=== PATIENT | female | born 1955 | race American Indian/Alaskan Native ===

== ENCOUNTER 2017-02-17 10:31 | Inpatient (IN) | payer MEDICARE, OTHER ==
[2017-02-17 10:31] VITALS: BMI 33.9
[2017-02-17] MEDS ORDERED: Sodium Chloride 0.9% 1,000 ML IV ONE (11:24)
[2017-02-17 11:55] LABS: BASO # 0.1 K/uL (0.0-0.2); BASO % 0.8 % (0.0-2.0); EOS # 0.1 K/uL (0.0-0.7); EOS % 0.8 % (0.0-4.0); HEMATOCRIT 38.4 % (34.0-47.0); LYMPH # 1.8 K/uL (1.0-4.3); LYMPH % 15.7 % (20.0-40.0); MEAN CELL VOLUME 83.5 fL (81.0-99.0); MEAN CORPUSCULAR HEMOGLOBIN 26.4 pg (27.0-31.0); MEAN CORPUSCULAR HGB CONC 31.6 g/dL (33.0-37.0); MEAN PLATELET VOLUME 11.4 fL (7.2-11.7); MONO # 0.8 K/uL (0.0-0.8); MONO % 6.7 % (0.0-10.0); WHITE BLOOD COUNT 11.4 K/uL (4.8-10.8)
[2017-02-17 11:58] LABS: INR 1.1
[2017-02-17 12:00] LABS: CHLORIDE 97 mmol/L (98-107); POTASSIUM 3.1 mmol/L (3.6-5.2); SODIUM 139 mmol/L (132-148)
[2017-02-17 12:02] LABS: RBC URINE 4 /hpf (0-3); URINE BACTERIA FEW (<OCC); URINE BILIRUBIN NEGATIVE (NEGATIVE); URINE BLOOD NEGATIVE (NEGATIVE); URINE COLOR Yellow (YELLOW); URINE GLUCOSE (UA) NORMAL (Normal); URINE KETONE NEGATIVE (NEGATIVE); URINE LEUKOCYTE ESTERASE NEG Leu/uL (Negative); URINE PROTEIN NEGATIVE (NEGATIVE); URINE UROBILINOGEN NORMAL mg/dL (0.2-1.0)
[2017-02-17 12:02] LABS: ALKALINE PHOSPHATASE 88 U/L (38-126); AST/SGOT 29 U/L (14-36); BILIRUBIN,TOTAL 0.8 mg/dL (0.2-1.3); BLOOD UREA NITROGEN 27 mg/dL (7-17); CARBON DIOXIDE 31 mmol/L (22-30); CHOLESTEROL 156 mg/dL (0-199); GFR AFRICAN-AMERICAN > 60; GLUCOSE,RANDOM 120 mg/dL (65-105)
[2017-02-17 12:03] LABS: ALT/SGPT 14 U/L (9-52); CALCIUM 9.2 mg/dl (8.6-10.4)
[2017-02-17 12:06] LABS: WBC URINE 5 /hpf (0-5)
[2017-02-17] MEDS ORDERED: Sodium Chloride 0.9% 1,000 ML ONE (12:19)
--- NOTE | 2017-02-17 12:23 | CT ---
PROCEDURE: CT HEAD WITHOUT CONTRAST. HISTORY: syncope COMPARISON: None available. TECHNIQUE: Axial computed tomography images were obtained through the head/brain without intravenous contrast. Radiation dose: Total exam DLP = 981.84 mGy-cm. This CT exam was performed using one or more of the following dose reduction techniques: Automated exposure control, adjustment of the mA and/or kV according to patient size, and/or use of iterative reconstruction technique. FINDINGS: HEMORRHAGE: No intracranial hemorrhage. BRAIN: No mass effect or edema. Mild scattered white matter hypodensities, which are nonspecific, but often seen with chronic microvascular ischemic disease. Please note that MRI with diffusion imaging is more sensitive in the detection of acute ischemic event. VENTRICLES: No hydrocephalus. CALVARIUM: Unremarkable. PARANASAL SINUSES: Unremarkable as visualized. No significant inflammatory changes. MASTOID AIR CELLS: Unremarkable as visualized. No inflammatory changes. OTHER FINDINGS: Soft tissue scalp irregularity along the vertex compatible with laceration; correlate clinically. IMPRESSION: No acute intracranial pathology identified. Soft tissue scalp irregularity along the vertex compatible with laceration; correlate clinically.
[2017-02-17 12:36] LABS: THYROID STIMULATING HORMONE 0.67 mIU/L (0.46-4.68)
--- NOTE | 2017-02-17 13:00 | C.PDOC ---
History Of Present Illness 61 y/o female presents to the ED s/p syncopal episode. Pt was waiting at her PMDs office for prescription refill, when she got up from sitting she felt dizzy and had syncopal episode. Pt was evaluated by Dr Powell who referred patient to ED for further evaluation. Pt now complains of mild headache. Denies severe headache, nausea, vomiting, dizziness, vision changes, focal deficits, chest pain, palpitations, SOB, incontinence, or any other complaints. Pt admits to taking all medications prior to being seen at PMDs office. Time Seen by Provider: 02/17/17 11:23 Chief Complaint (Nursing): Syncope History Per: Patient History/Exam Limitations: no limitations Onset/Duration Of Symptoms: Mins Current Symptoms Are (Timing): Better Number Of Syncopal Episodes: 1 Activity At Onset Of Symptoms: Had Just Stood up Associated Symptoms Preceding Syncopal Episode: Other (dizziness) Fall Associated With With Symptoms: Yes Severity: Mild Recent travel outside of the [place]: No Past Medical History Reviewed: Historical Data, Nursing Documentation, Vital Signs Vital Signs: Last Vital Signs Temp 97.6 F 02/17/17 17:22 Pulse 53 L 02/17/17 17:22 Resp 18 02/17/17 17:22 BP 126/69 02/17/17 17:22 Pulse Ox 98 02/17/17 17:22 - Medical History PMH: HTN, Hypercholesterolemia, Hyperlipidemia - [facility] Procedures CONTRAST RENAL ARTERIOGR (12/08/13) CORONAR ARTERIOGR-2 CATH (12/08/13) INSERTION OF ONE VASCULAR STENT (12/08/13) INSRT OF DRUG-ELUTING CORON ARTERY STENTS(S) (12/08/13) LEFT HEART CARDIAC CATH (12/08/13) LT HEART ANGIOCARDIOGRAM (12/08/13) PERCUTANEOUS TRANSLUMINAL CORONARY ANGIOPLASTY [PTCA] (12/08/13) PROCEDURE ON SINGLE VESSEL (12/08/13) Family History: States: Unknown Family Hx - Social History Hx Alcohol Use: No Hx Substance Use: No - Immunization History Hx Tetanus Toxoid Vaccination: No Hx Influenza Vaccination: Yes Hx Pneumococcal Vaccination: No Review Of Systems Except As Marked, All Systems Reviewed And Found Negative. Constitutional: Negative for: Fever Eyes: Negative for: Vision Change Cardiovascular: Negative for: Chest Pain, Palpitations Respiratory: Negative for: Shortness of Breath Gastrointestinal: Negative for: Nausea, Vomiting Genitourinary: Negative for: Incontinence Neurological: Positive for: Headache, Other (syncopal episode). Negative for: Weakness, Numbness, Change in Speech Physical Exam - Physical Exam Appears: Non-toxic, No Acute Distress Skin: Warm, Dry, No Rash Head: Normacephalic, No Swelling, Other (puncture wound to left parietal area) Eye(s): bilateral: PERRL, EOMI Nose: Normal Neck: Normal, Normal ROM, Supple Chest: Symmetrical Cardiovascular: Rhythm Regular, No Murmur Respiratory: Normal Breath Sounds, No Rales, No Rhonchi, No Wheezing Gastrointestinal/Abdominal: Normal Exam, Soft, No Tenderness Back: Normal Inspection, No Vertebral Tenderness Extremity: Normal ROM Extremity: Bilateral: Atraumatic Neurological/Psych: Oriented x3, Normal Speech, Normal Cognition, Normal Cranial Nerves, Normal Motor, Normal Sensation Gait: Steady ED Course And Treatment - Laboratory Results Result Diagrams: 02/17/17 11:43 02/17/17 11:43 ECG: Interpreted By Me, Viewed By Me (and ED attending) ECG Rhythm: Sinus Bradycardia (Sinus naveen@48/min, NAD, T wave inversion III, V2 -3) O2 Sat by Pulse Oximetry: 98 (room air) Pulse Ox Interpretation: Normal - CT Scan/US CT head w/o contrast Other Rad Studies (CT/US): Radiology Report Reviewed CT/US Interpretation: PROCEDURE: CT HEAD WITHOUT CONTRAST. HISTORY: syncope. COMPARISON: None available. TECHNIQUE: Axial computed tomography images were obtained through the head/brain without intravenous contrast. Radiation dose: Total exam DLP = 981.84 mGy-cm. This CT exam was performed using one or more of the following dose reduction techniques: Automated exposure control, adjustment of the mA and/or kV according to patient size, and/or use of iterative reconstruction technique. FINDINGS: HEMORRHAGE: No intracranial hemorrhage. BRAIN: No mass effect or edema. Mild scattered white matter hypodensities, which are nonspecific, but often seen with chronic microvascular ischemic disease. Please note that MRI with diffusion imaging is more sensitive in the detection of acute ischemic event. VENTRICLES: No hydrocephalus. CALVARIUM: Unremarkable. PARANASAL SINUSES: Unremarkable as visualized. No significant inflammatory changes. MASTOID AIR CELLS: Unremarkable as visualized. No inflammatory changes. OTHER FINDINGS: Soft tissue scalp irregularity along the vertex compatible with laceration; correlate clinically. IMPRESSION: No acute intracranial pathology identified. Soft tissue scalp irregularity along the vertex compatible with laceration; correlate clinically. Progress Note: On re-eavluation, pt remained stable, Afebrile, hemodynamicaly stable. Still c/o mild headache. neck: (-) meningeals ign. Lungs: CTA B/L, BS equal B/L. CVS: (+)naveen, (-) murmurs. Abd: benign. Neurologicaly intact. Diagnostics reviews, CT head- no acute abnormalities. GIven pt's cardiac hx and current syncopal episode, admission recommend . Case discussed with Hospitalist and admission arranged to tele. 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 - Scribe Statement The provider has reviewed the documentation as recorded by the Scribdiana Guaman All medical record entries made by the Scribe were at my direction and personally dictated by me. I have reviewed the chart and agree that the record accurately reflects my personal performance of the history, physical exam, medical decision making, and the department course for this patient. I have also personally directed, reviewed, and agree with the discharge instructions and disposition.
[2017-02-17] MEDS ORDERED: Potassium Chloride 20 mEq/15 ml LIQ UD PO STA (13:08)
[2017-02-17] MEDS ORDERED: Potassium Chloride 20 mEq ER Tab PO ONE (13:18)
--- NOTE | 2017-02-17 15:11 | CP.PCM.HP ---
<Aggie Sena - Last Filed: 02/17/17 16:03> History of Present Illness - History of Present Illness History of Present Illness: CC: "vision got blurry and dizzy" HPI: Patient is a 61 year old female who presents to the emergency department for episode of syncope which occurred early this morning. Patient arrived to her primary care physician's office for her 8:00 AM appointment to have her medications refilled and was in the waiting room when the episode occurred and she was sent to the emergency department by her primary care physician. She reports she stood up from the chair and her vision became blurry and she felt dizzy. Patient denies falling as she leaned up against a wall to support herself. Patient was unclear with details when questioned if she lost consciousness during the event. However, upon re-examination of the patient, she states she hit her head and fell to her side and was supported by another patient. Patient admits to taking her medications prior to her appointment which include Atorvastatin 40 mg po HS, Clonidin 0.1 mg po qd, Plavix 75 mg po qd, Enalapril 20 mg po qd, Hydrochlorothiazide 25 mg po qd, and Lopressor 50 mg po BID. She states she takes all her medicines at the same time every day. Patient denies other recent syncopal episodes. She reports the only other episode of syncope she experienced was prior to her cardiac catheterization in 2014 which revealed an "80% blockage" of her heart. Patient states the syncopal events were different. She denies shortness of breath, chest pain, palpitations , difficulty with ambulation or unstable gait, abdominal pain, fever, chills, nausea, vomiting, diarrhea, hematochezia, melanic stools, constipation, dysuria , increased urinary frequency, and lower extremity swelling. Patient denies a history of TIA/CVA. PMD: Dr. Mark Anthony Powell PMH: Hypertension, CAD with stent placement to LAD (2014), HLD Medications: as above Allergies: NKDA Family History: Father- CVA Surgical History: cardiac stent placement to LAD, incision and drainage of right leg abscess. Social: Never smoker. Denies alcohol and illicit drug use. Present on Admission - Present on Admission Any Indicators Present on Admission: No History of DVT/PE: No History of Uncontrolled Diabetes: No Urinary Catheter: No Decubitus Ulcer Present: No Review of Systems - Constitutional Constitutional: absent: Chills, Fever, Headache, Lethargy, Weakness - EENT Eyes: Blurred Vision. absent: Change in Vision Nose/Mouth/Throat: absent: Nasal Congestion, Nasal Discharge - Cardiovascular Cardiovascular: Syncope. absent: Chest Pain, Diaphoresis, Dyspnea, Lightheadedness, Palpitations, Paroxysmal Nocturnal Dyspnea, Radiating Pain, Rapid Heart Rate - Respiratory Respiratory: absent: Cough, Dyspnea, Hemoptysis, Wheezing - Gastrointestinal Gastrointestinal: absent: Abdominal Pain, Constipation, Diarrhea, Hematochezia, Melena, Nausea, Vomiting - Genitourinary Genitourinary: absent: Change in Urinary Stream, Difficulty Urinating, Dysuria - Musculoskeletal Additional comments: bilateral knee pain - Integumentary Integumentary: absent: Changing Lesions, New Lesions - Neurological Neurological: Dizziness, Syncope. absent: Confusion, Numbness, Memory Loss, Tingling, Weakness Past Patient History - Infectious Disease Hx of Infectious Diseases: None - Past Medical History & Family History Past Medical History?: Yes - Past Social History Smoking Status: Never Smoked - CARDIAC Hx Hypercholesterolemia: Yes Hx Hypertension: Yes - PULMONARY Hx Respiratory Disorders: No - NEUROLOGICAL Hx Neurological Disorder: No Hx Paralysis: No - HEENT Hx HEENT Problems: No - RENAL Hx Chronic Kidney Disease: No - ENDOCRINE/METABOLIC Hx Endocrine Disorders: No - HEMATOLOGICAL/ONCOLOGICAL Hx Blood Disorders: No Hx Blood Transfusions: No Hx Blood Transfusion Reaction: No - INTEGUMENTARY Hx Dermatological Problems: Yes Other/Comment: RT LOWER - MUSCULOSKELETAL/RHEUMATOLOGICAL Hx Musculoskeletal Disorders: No Hx Falls: No - GASTROINTESTINAL Hx Gastrointestinal Disorders: No - GENITOURINARY/GYNECOLOGICAL Hx Genitourinary Disorders: No - PSYCHIATRIC Hx Substance Use: No - SURGICAL HISTORY Hx Surgeries: Yes Hx Cardiac Catheterization: Yes (STENT IN 2013) - ANESTHESIA Hx Anesthesia: Yes Hx Anesthesia Reactions: No Hx Malignant Hyperthermia: No Meds Allergies/Adverse Reactions: Allergies Allergy/AdvReac Type Severity Reaction Status Date / Time No Known Allergies Allergy Verified 07/09/15 09:44 Physical Exam - Constitutional Appears: Non-toxic, No Acute Distress - Head Exam Head Exam: ATRAUMATIC, NORMAL INSPECTION, NORMOCEPHALIC - Eye Exam Eye Exam: EOMI, Normal appearance, PERRL. absent: Nystagmus Pupil Exam: PERRL - ENT Exam ENT Exam: Mucous Membranes Moist, Normal Exam - Neck Exam Neck exam: Positive for: Normal Inspection. Negative for: Lymphadenopathy, Tenderness - Respiratory Exam Respiratory Exam: Clear to Auscultation Bilateral, NORMAL BREATHING PATTERN. absent: Decreased Breath Sounds, Rales, Rhonchi, Wheezes - Cardiovascular Exam Cardiovascular Exam: Bradycardia, +S1, +S2. absent: Diastolic murmur, Systolic Murmur - GI/Abdominal Exam GI & Abdominal Exam: Normal Bowel Sounds, Soft. absent: Firm, Guarding, Rigid, Tenderness - Extremities Exam Extremities exam: Positive for: normal inspection, pedal pulses present. Negative for: pedal edema, tenderness - Back Exam Back exam: NORMAL INSPECTION - Neurological Exam Neurological exam: Alert, CN II-XII Intact, Oriented x3 Additional comments: finger to nose test - negative heel to roblero test - negative EOMI, pupils equal and reactive to light strength intact bilaterally 5/5 - Psychiatric Exam Additional comments: eccentric personality - Skin Skin Exam: Intact, Normal Color, Warm Results - Vital Signs Recent Vital Signs: Last Vital Signs Temp 97.3 F L 02/17/17 12:15 Pulse 45 L 02/17/17 12:15 Resp 16 02/17/17 12:15 BP 133/63 02/17/17 12:15 Pulse Ox 98 02/17/17 13:20 - Labs Result Diagrams: 02/17/17 11:43 02/17/17 11:43 Assessment & Plan - Assessment and Plan (Free Text) Assessment: Syncope r/o Cardioneurogenic cause Patient has history of Coronary artery disease with stent placed to LAD Head CT: No acute intracranial pathology identified. Soft tissue scalp irregularity along the vertex compatible with laceration. EKG: sinus bradycardia at rate of 48 bpm Troponin I <0.0120 f/u [facility] panel and serial EKGs f/u CK-MB NT-pro-B Natriuret Pep 87.1 Hold Metoprolol due to sinus bradycardia Orthostatics are negative f/u CXR f/u Echocardiogram and Carotid Dopplers f/u AM labs Energy Conservation Engineer, Dr. Poon, consulted. Help appreciated CAD s/p stent placement Plavix 75 mg po daily ASA 81 mg po daily HOLD Lopressor due to sinus bradycardia Continue Atorvastatin 40 mg po HS and Enalapril 20 mg po daily Hypertension Blood pressure 108/71 on presentation. Patient given Normal Saline IV. Repeat pressure 133/68 Continue home medication: Hydrochlorothiazide 25 mg po daily and Clonidine 0.1 mg po daily Monitor Hypokalemia Potassium 3.1 kdur 40 mEq given in ED f/u Repeat potassium Prophylaxis Heparin 5000 U SC Q12H SCDs - Date & Time Date: 02/17/17 Time: 16:26 <Anand Marrero - Last Filed: 02/17/17 18:53> Results - Vital Signs Recent Vital Signs: Last Vital Signs Temp 97.6 F 02/17/17 17:22 Pulse 53 L 02/17/17 17:22 Resp 18 02/17/17 17:22 BP 126/69 02/17/17 17:22 Pulse Ox 98 02/17/17 17:22 - Labs Result Diagrams: 02/17/17 11:43 02/17/17 11:43 Attending/Attestation - Attestation I have personally seen and examined this patient.: Yes I have fully participated in the care of the patient.: Yes I have reviewed all pertinent clinical information: Yes Notes (Text): 02/17/17 18:50 Medical attending: Patient was seen and examined by me, agrees the above note by medical photographer. The patient was seen in the emergency room with the medical photographer as well as family members at bedside. She was at her primary care physician office when she became very weak and dizzy and passed out she thinks she hits her head. A CT scan of the head was done here in the emergency room and it was negative for any acute process. When I saw her she looked very well very talkative interactive. I did not have her walk around since she was tied down by so many wires as well as a monitors, however she appeared to be very stable. Of significant note is a relatively bradycardia. It appeared to be sinus and in the 40s. I asked the patient has this happen to her before were her heart rate was the slow and she says that she is not entirely sure. She says that she did take her medication in the morning and this included metoprolol. She does not know if she's had echo of her heart before She does have a rather extensive cardiac history including taking Plavix and history of stent to her LAD. I spoke with the patient's primary care physician gave him an update as well. We 'll be checking additional cardiac enzymes, repeat EKGs, monitor on telemetry, and also get an echo and a cardiology evaluation Thank you very much, Anand Marrero
[2017-02-18 04:44] LABS: BASO % 0.5 % (0.0-2.0); EOS # 0.1 K/uL (0.0-0.7); EOS % 1.2 % (0.0-4.0); HEMATOCRIT 34.4 % (34.0-47.0); LYMPH % 21.4 % (20.0-40.0); MEAN CORPUSCULAR HEMOGLOBIN 27.1 pg (27.0-31.0); MEAN CORPUSCULAR HGB CONC 32.6 g/dL (33.0-37.0); MEAN PLATELET VOLUME 12.5 fL (7.2-11.7); MONO # 0.6 K/uL (0.0-0.8); NRBC % 0.1 % (0.0-2.0); RED CELL DISTRIBUTION WIDTH 15.2 % (11.5-14.5); WHITE BLOOD COUNT 9.2 K/uL (4.8-10.8)
[2017-02-18 05:05] LABS: CHLORIDE 102 mmol/L (98-107); SODIUM 142 mmol/L (132-148)
[2017-02-18 05:06] LABS: POTASSIUM 3.1 mmol/L (3.6-5.2)
[2017-02-18 05:07] LABS: GFR AFRICAN-AMERICAN > 60
[2017-02-18 05:08] LABS: ALKALINE PHOSPHATASE 73 U/L (38-126); ALT/SGPT 7 U/L (9-52); AST/SGOT 21 U/L (14-36); BILIRUBIN,TOTAL 0.6 mg/dL (0.2-1.3); BLOOD UREA NITROGEN 27 mg/dL (7-17); CARBON DIOXIDE 31 mmol/L (22-30); GLUCOSE,RANDOM 101 mg/dL (65-105); TOTAL PROTEIN 6.7 g/dL (6.3-8.3)
[2017-02-18 05:09] LABS: CALCIUM 8.9 mg/dl (8.6-10.4)
--- NOTE | 2017-02-18 07:51 | CP.PCM.CON ---
History of Present Illness - History of Present Illness History of Present Illness: I was asked to evaluate for syncope. Patient is a 61 year old male with a history of CAD HTN, who presents with syncope. The patient has noted progressive dyspnea on exertion whcih she describes as occurring after walking one flight of stairs. The patient states symptoms improve with rest. The patient was in her doctor's office, and was noted to have syncope. She was brought to [facility] for further management. Review of Systems - Constitutional Constitutional: absent: As Per HPI, Anorexia, Chills, Daytime Sleepiness, Excessive Sweating, Fatigue, Fever, Frequent Falls, Headache, Increased Appetite , Lethargy, Malaise, Night Sweats, Snoring, Sleep Apnea, Weight Gain, Weight Loss, Weakness, Other - EENT Eyes: absent: As Per HPI, Blind Spots, Blurred Vision, Change in Vision, Decreased Night Vision, Diplopia, Discharge, Dry Eye, Exophthalmos, Floaters, Irritation, Itchy Eyes, Loss of Peripheral Vision, Pain, Photophobia, Requires Corrective Lenses, Sees Flashes, Spots in Vision, Tunnel Vision, Other Visual Disturbances, Loss of Vision, Other Ears: absent: As Per HPI, Decreased Hearing, Ear Discharge, Ear Pain, Tinnitus, Abnormal Hearing, Disequilibrium, Dizziness, Other Nose/Mouth/Throat: absent: As Per HPI, Epistaxis, Nasal Congestion, Nasal Discharge, Nasal Obstruction, Nasal Trauma, Nose Pain, Post Nasal Drip, Sinus Pain, Sinus Pressure, Bleeding Gums, Change in Voice, Dental Pain, Dry Mouth, Dysphagia, Halitosis, Hoarsness, Lip Swelling, Mouth Lesions, Mouth Pain, Odynophagia, Sore Throat, Throat Swelling, Tongue Swelling, Facial Pain, Neck Pain, Neck Mass, Other - Cardiovascular Cardiovascular: absent: As Per HPI, Acrocyanosis, Chest Pain, Chest Pain at Rest , Chest Pain with Activity, Claudication, Diaphoresis, Dyspnea, Dyspnea on Exertion, Edema, Irregular Heart Rhythm, Pain Radiating to Arm/Neck/Jaw, Leg Edema, Leg Ulcers, Lightheadedness, Orthopnea, Palpitations, Paroxysmal Nocturnal Dyspnea, Pedal Edema, Radiating Pain, Rapid Heart Rate, Slow Heart Rate, Syncope, Other - Respiratory Respiratory: absent: As Per HPI, Cough, Dyspnea, Hemoptysis, Dyspnea on Exertion , Wheezing, Snoring, Stridor, Pain on Inspiration, Chest Congestion, Excessive Mucous Production, Change in Mucous Color, Pain with Coughing, Other - Gastrointestinal Gastrointestinal: absent: As Per HPI, Abdominal Pain, Belching, Bloating, Change in Bowel Habits, Change in Stool Character, Coffee Ground Emesis, Constipation, Cramping, Diarrhea, Dyspepsia, Dysphagia, Early Satiety, Excessive Flatus, Fecal Incontinence, Heartburn, Hematemesis, Hematochezia, Loose Stools, Melena, Nausea, Odynophagia, Temesmus, Vomiting, Other - Musculoskeletal Musculoskeletal: absent: As Per HPI, Abnormal Gait, Arthralgias, Atrophy, Back Pain, Deformity, Joint Swelling, Limited Range of Motion, Loss of Height, Muscle Cramps, Muscle Weakness, Myalgias, Neck Pain, Numbness, Radiating Pain into Limb, Stiffness, Tingling, Other - Integumentary Integumentary: absent: As Per HPI, Acne, Alopecia, Bleeding Lesions, Change in Hair, Change in Nails, Change in Pigmentation, Changing Lesions, Dry Skin, Erythema, Furuncle, Hirsutism, Lesions, New Lesions, Non-Healing Lesions, Photosensitivity, Pruritus, Rash, Skin Pain, Skin Ulcer, Sores, Striae, Swelling , Unusual Bruising, Wounds, Jaundice, Other - Neurological Neurological: absent: As Per HPI, Abnormal Gait, Abnormal Hearing, Abnormal Movements, Abnormal Speech, Behavioral Changes, Burning Sensations, Confusion, Convulsions, Disequilibrium, Dizziness, Numbness, Focal Weakness, Frequent Falls , Headaches, Lack of Coordination, Loss of Vision, Memory Loss, Paresthesias, Radicular Pain, Restless Legs, Sensory Deficit, Syncope, Tingling, Tremor, Vertigo, Weakness, Other Visual Disturbances, Other - Psychiatric Psychiatric: absent: As Per HPI, Abnormal Sleep Pattern, Anhedonia, Anxiety, Auditory Hallucinations, Behavioral Changes, Change in Appetite, Change in Libido, Confusion, Depression, Difficulty Concentrating, Hallucinations, Homicidal Ideation, Hopelessness, Irritability, Memory Loss, Mood Swings, Panic Attacks, Paranoia, Suicidal Ideation, Visual Hallucinations, Tactile Hallucinations, Other - Endocrine Endocrine: absent: As Per HPI, Change in Body Appearance, Change in Libido, Cold Intolorance, Deepening of Voice, Excessive Sweating, Fatigue, Flushing, Heat Intolorance, Increase in Ring/Shoe/Hat Size, Palpitations, Polydipsia, Polyphagia, Polyuria, Other - Hematologic/Lymphatic Hematologic: absent: As Per HPI, Easy Bleeding, Easy Bruising, Lymphadenopathy, Other Past Patient History - Infectious Disease Hx of Infectious Diseases: None - Past Medical History & Family History Past Medical History?: Yes - Past Social History Smoking Status: Never Smoked - CARDIAC Hx Hypercholesterolemia: Yes Hx Hypertension: Yes - PULMONARY Hx Respiratory Disorders: No - NEUROLOGICAL Hx Neurological Disorder: No Hx Paralysis: No - HEENT Hx HEENT Problems: No - RENAL Hx Chronic Kidney Disease: No - ENDOCRINE/METABOLIC Hx Endocrine Disorders: No - HEMATOLOGICAL/ONCOLOGICAL Hx Blood Disorders: No Hx Blood Transfusions: No Hx Blood Transfusion Reaction: No - INTEGUMENTARY Hx Dermatological Problems: Yes Other/Comment: RT LOWER - MUSCULOSKELETAL/RHEUMATOLOGICAL Hx Musculoskeletal Disorders: No Hx Falls: No - GASTROINTESTINAL Hx Gastrointestinal Disorders: No - GENITOURINARY/GYNECOLOGICAL Hx Genitourinary Disorders: No - PSYCHIATRIC Hx Substance Use: No - SURGICAL HISTORY Hx Surgeries: Yes Hx Cardiac Catheterization: Yes (STENT IN 2013) - ANESTHESIA Hx Anesthesia: Yes Hx Anesthesia Reactions: No Hx Malignant Hyperthermia: No Meds Allergies/Adverse Reactions: Allergies Allergy/AdvReac Type Severity Reaction Status Date / Time No Known Allergies Allergy Verified 07/09/15 09:44 - Medications Medications: Current Medications Aspirin (Ecotrin) 81 mg PO DAILY [facility] Clonidine HCl (Catapres) 0.1 mg PO DAILY [facility] Clopidogrel Bisulfate (Plavix) 75 mg PO DAILY [facility] Enalapril Maleate (Vasotec) 20 mg PO DAILY [facility] Heparin Sodium (Porcine) (Heparin) 5,000 units SC Q12 [facility] Last Admin: 02/17/17 21:16 Dose: 5,000 units Hydrochlorothiazide (Hydrodiuril) 25 mg PO DAILY [facility] Pneumococcal Polyvalent Vaccine (Pneumovax 23 Vaccine) 0.5 ml IM .ONCE ONE Stop: 02/18/17 10:01 Rosuvastatin Calcium (Crestor) 40 mg PO [facility] Last Admin: 02/17/17 21:15 Dose: 40 mg Physical Exam - Constitutional Appears: Non-toxic - Head Exam Head Exam: NORMAL INSPECTION - Eye Exam Eye Exam: Normal appearance - ENT Exam ENT Exam: Mucous Membranes Moist - Neck Exam Neck exam: Positive for: Full Rom - Respiratory Exam Respiratory Exam: NORMAL BREATHING PATTERN - Cardiovascular Exam Cardiovascular Exam: REGULAR RHYTHM - GI/Abdominal Exam GI & Abdominal Exam: Normal Bowel Sounds - Rectal Exam Rectal Exam: Deferred - Extremities Exam Extremities exam: Positive for: pedal edema - Back Exam Back exam: NORMAL INSPECTION - Neurological Exam Neurological exam: Alert, Oriented x3 - Psychiatric Exam Psychiatric exam: Normal Affect - Skin Skin Exam: Normal Color Results - Vital Signs Recent Vital Signs: Last Vital Signs Temp 97.5 F L 02/17/17 23:30 Pulse 71 02/17/17 23:30 Resp 20 02/17/17 23:30 BP 111/61 02/17/17 23:30 Pulse Ox 100 02/17/17 23:30 - Labs Result Diagrams: 02/19/17 07:42 02/19/17 07:42 Labs: Laboratory Results - last 24 hr 02/17/17 02/18/17 02/18/17 19:37 04:33 04:33 WBC 9.2 RBC 4.14 Hgb 11.2 Hct 34.4 MCV 83.0 MCH 27.1 MCHC 32.6 L RDW 15.2 H Plt Count 117 L D MPV 12.5 H Neut % (Auto) 69.9 Lymph % (Auto) 21.4 [place] % (Auto) 7.0 Eos % (Auto) 1.2 Baso % (Auto) 0.5 Neut # 6.4 Lymph # 2.0 [place] # 0.6 Eos # 0.1 Baso # 0.0 Sodium 142 Potassium 3.1 L Chloride 102 Carbon Dioxide 31 H Anion Gap 12 BUN 27 H Creatinine 1.0 Est GFR ( Amer) > 60 Est GFR (Non-Af Amer) 56 Random Glucose 101 Calcium 8.9 Magnesium 2.0 Total Bilirubin 0.6 AST 21 ALT 7 L D Alkaline Phosphatase 73 Total Creatine Kinase 45 44 CK-MB (Mass) 0.32 < 0.22 Troponin I, Quant < 0.0120 < 0.0120 Total Protein 6.7 Albumin 3.4 L Globulin 3.3 Albumin/Globulin Ratio 1.0 - EKG Data EKG Interpreted by: Myself EKG shows normal: Sinus rhythm Assessment & Plan (1) Dyspnea Assessment and Plan: patient has known CAD. likely recommend cardiac cath to evaluate for restenosis. Status: Acute (2) CAD (coronary artery disease) Assessment and Plan: angina. for cardiac cath Status: Acute (3) HTN (hypertension) Assessment and Plan: blood pressure control Status: Acute (4) Syncope Assessment and Plan: will monitor on telemetry Status: Acute
--- NOTE | 2017-02-18 07:51 | CP.PCM.CON ---
History of Present Illness - History of Present Illness History of Present Illness: patient seen/examined. full consult to follow. history of CAD s/p stent LAD 11065 with progressive dyspnea on exertion after walking one flight of stairs. Zack had a syncopal episode while in her primary medical doctor's office. Continue telemetry monitoring. echocardiogram to assess LV function. will need cardiac cath. NPO after midnight. Past Patient History - Infectious Disease Hx of Infectious Diseases: None - Past Medical History & Family History Past Medical History?: Yes - Past Social History Smoking Status: Never Smoked - CARDIAC Hx Hypercholesterolemia: Yes Hx Hypertension: Yes - PULMONARY Hx Respiratory Disorders: No - NEUROLOGICAL Hx Neurological Disorder: No Hx Paralysis: No - HEENT Hx HEENT Problems: No - RENAL Hx Chronic Kidney Disease: No - ENDOCRINE/METABOLIC Hx Endocrine Disorders: No - HEMATOLOGICAL/ONCOLOGICAL Hx Blood Disorders: No Hx Blood Transfusions: No Hx Blood Transfusion Reaction: No - INTEGUMENTARY Hx Dermatological Problems: Yes Other/Comment: RT LOWER - MUSCULOSKELETAL/RHEUMATOLOGICAL Hx Musculoskeletal Disorders: No Hx Falls: No - GASTROINTESTINAL Hx Gastrointestinal Disorders: No - GENITOURINARY/GYNECOLOGICAL Hx Genitourinary Disorders: No - PSYCHIATRIC Hx Substance Use: No - SURGICAL HISTORY Hx Surgeries: Yes Hx Cardiac Catheterization: Yes (STENT IN 2013) - ANESTHESIA Hx Anesthesia: Yes Hx Anesthesia Reactions: No Hx Malignant Hyperthermia: No Meds Allergies/Adverse Reactions: Allergies Allergy/AdvReac Type Severity Reaction Status Date / Time No Known Allergies Allergy Verified 07/09/15 09:44 - Medications Medications: Current Medications Aspirin (Ecotrin) 81 mg PO DAILY [facility] Clonidine HCl (Catapres) 0.1 mg PO DAILY [facility] Clopidogrel Bisulfate (Plavix) 75 mg PO DAILY [facility] Enalapril Maleate (Vasotec) 20 mg PO DAILY [facility] Heparin Sodium (Porcine) (Heparin) 5,000 units SC Q12 [facility] Last Admin: 02/17/17 21:16 Dose: 5,000 units Hydrochlorothiazide (Hydrodiuril) 25 mg PO DAILY [facility] Pneumococcal Polyvalent Vaccine (Pneumovax 23 Vaccine) 0.5 ml IM .ONCE ONE Stop: 02/18/17 10:01 Rosuvastatin Calcium (Crestor) 40 mg PO HS [facility] Last Admin: 02/17/17 21:15 Dose: 40 mg Results - Vital Signs Recent Vital Signs: Last Vital Signs Temp 97.5 F L 02/17/17 23:30 Pulse 71 02/17/17 23:30 Resp 20 02/17/17 23:30 BP 111/61 02/17/17 23:30 Pulse Ox 100 02/17/17 23:30 - Labs Result Diagrams: 02/18/17 04:33 02/18/17 04:33 Labs: Laboratory Results - last 24 hr 02/17/17 02/18/17 02/18/17 19:37 04:33 04:33 WBC 9.2 RBC 4.14 Hgb 11.2 Hct 34.4 MCV 83.0 MCH 27.1 MCHC 32.6 L RDW 15.2 H Plt Count 117 L D MPV 12.5 H Neut % (Auto) 69.9 Lymph % (Auto) 21.4 [place] % (Auto) 7.0 Eos % (Auto) 1.2 Baso % (Auto) 0.5 Neut # 6.4 Lymph # 2.0 [place] # 0.6 Eos # 0.1 Baso # 0.0 Sodium 142 Potassium 3.1 L Chloride 102 Carbon Dioxide 31 H Anion Gap 12 BUN 27 H Creatinine 1.0 Est GFR ( Amer) > 60 Est GFR (Non-Af Amer) 56 Random Glucose 101 Calcium 8.9 Magnesium 2.0 Total Bilirubin 0.6 AST 21 ALT 7 L D Alkaline Phosphatase 73 Total Creatine Kinase 45 44 CK-MB (Mass) 0.32 < 0.22 Troponin I, Quant < 0.0120 < 0.0120 Total Protein 6.7 Albumin 3.4 L Globulin 3.3 Albumin/Globulin Ratio 1.0
[2017-02-18] MEDS ORDERED: Potassium Chloride 20 mEq ER Tab PO STA ×2 (07:52→09:51)
--- NOTE | 2017-02-18 07:58 | CP.PCM.PN ---
<Aggie Sena - Last Filed: 02/18/17 13:58> Subjective - Date & Time of Evaluation Date of Evaluation: 02/18/17 Time of Evaluation: 07:57 - Subjective Subjective: Patient seen and examined at bedside. Patient states she has pain to her left hip due to fall yesterday. She reports swelling and bruising to the area. She denies pain to the left scalp which was also injured upon falling. Patient denies chest pain, shortness of breath, palpitations, dizziness, abdominal pain , nausea, vomiting, diarrhea and constipation. She is aware of plan for cardiac catheterization tomorrow. Objective - Vital Signs/Intake and Output Vital Signs (last 24 hours): Temp Pulse Resp BP Pulse Ox 98 F 76 18 138/76 99 02/18/17 07:30 02/18/17 07:30 02/18/17 07:30 02/18/17 07:30 02/18/17 07:30 Intake and Output: 02/18/17 02/18/17 06:59 18:59 Intake Total 120 Balance 120 - Medications Medications: Current Medications Aspirin (Ecotrin) 81 mg PO DAILY [facility] Clonidine HCl (Catapres) 0.1 mg PO DAILY [facility] Clopidogrel Bisulfate (Plavix) 75 mg PO DAILY [facility] Enalapril Maleate (Vasotec) 20 mg PO DAILY [facility] Heparin Sodium (Porcine) (Heparin) 5,000 units SC Q12 [facility] Last Admin: 02/17/17 21:16 Dose: 5,000 units Hydrochlorothiazide (Hydrodiuril) 25 mg PO DAILY [facility] Pneumococcal Polyvalent Vaccine (Pneumovax 23 Vaccine) 0.5 ml IM .ONCE ONE Stop: 02/18/17 10:01 Rosuvastatin Calcium (Crestor) 40 mg PO HS [facility] Last Admin: 02/17/17 21:15 Dose: 40 mg - Labs Labs: 02/18/17 04:33 02/18/17 04:33 PT 12.2 SECONDS (9.7-12.2) 02/17/17 11:43 INR 1.1 02/17/17 11:43 APTT 29 SECONDS (21-34) 02/17/17 11:43 - Constitutional Appears: Non-toxic, No Acute Distress - Head Exam Head Exam: ATRAUMATIC, NORMAL INSPECTION, NORMOCEPHALIC - Eye Exam Eye Exam: EOMI, Normal appearance, PERRL - ENT Exam ENT Exam: Mucous Membranes Moist - Neck Exam Neck Exam: Full ROM, Normal Inspection - Respiratory Exam Respiratory Exam: Clear to Ausculation Bilateral, NORMAL BREATHING PATTERN. absent: Rales, Rhonchi, Wheezes - Cardiovascular Exam Cardiovascular Exam: Bradycardia, +S1, +S2. absent: Tachycardia - GI/Abdominal Exam GI & Abdominal Exam: Soft, Normal Bowel Sounds. absent: Guarding, Rigid, Tenderness - Extremities Exam Additional comments: left hip edema and ecchymosis - Back Exam Back Exam: NORMAL INSPECTION - Neurological Exam Neurological Exam: Alert, Awake, Oriented x3 - Psychiatric Exam Psychiatric exam: Normal Affect, Normal Mood - Skin Additional comments: ecchymosis to left hip Assessment and Plan - Assessment and Plan (Free Text) Assessment: Syncope r/o Cardioneurogenic cause Patient has history of Coronary artery disease with stent placed to LAD Head CT: No acute intracranial pathology identified. Soft tissue scalp irregularity along the vertex compatible with laceration. EKG: sinus bradycardia at rate of 48 bpm Troponin I <0.0120 [facility] panel x3 negative EKG: sinus bradycardia at rate of 50 CK-MB 0.32 NT-pro-B Natriuret Pep 87.1 Hold Metoprolol due to sinus bradycardia Orthostatics are negative CXR: Mild venous congestion. Right hilar prominence. Minimal patchy increased markings at left lung base. Echocardiogram: Left Ventricle is borderline dilated. Ejection fraction is >70% . Left atrial pressure is mildly elevated. Moderately increased left atrial volume index. Transmitral doppler flow pattern is grade II-pseudonormal filling dynamics suspicious for pfo. Mitral regurgitation is mild to moderate. There is mild to moderate tricuspid regurgitation. Right ventricular systolic pressure is estimated at 39 mmHg. There is mild pulmonary hypertension. f/u Carotid Dopplers f/u AM labs [employer], Dr. Poon, consulted. Help appreciated. Per Dr. Poon, patient will need cardiac catheretization. NPO after midnight. CAD s/p stent placement Plavix 75 mg po daily ASA 81 mg po daily HOLD Lopressor due to sinus bradycardia Continue Atorvastatin 40 mg po HS and Enalapril 20 mg po daily Hypertension Blood pressure 108/71 on presentation. Patient given Normal Saline IV. Repeat pressure 133/68 Continue home medication: Hydrochlorothiazide 25 mg po daily and Clonidine 0.1 mg po daily Monitor Hypokalemia Potassium 3.1 kdur 40 mEq given in ED f/u Repeat potassium L Hip Ecchymosis f/u X-ray of left hip Prophylaxis Heparin 5000 U SC Q12H [facility] <Anand Marrero H - Last Filed: 02/18/17 14:22> Objective - Vital Signs/Intake and Output Vital Signs (last 24 hours): Temp Pulse Resp BP Pulse Ox 98 F 76 18 126/78 99 02/18/17 07:30 02/18/17 07:30 02/18/17 07:30 02/18/17 10:12 02/18/17 07:30 Intake and Output: 02/18/17 02/18/17 06:59 18:59 Intake Total 120 Balance 120 - Medications Medications: Current Medications Aspirin (Ecotrin) 81 mg PO DAILY [facility] Last Admin: 02/18/17 10:11 Dose: 81 mg Clonidine HCl (Catapres) 0.1 mg PO DAILY [facility] Last Admin: 02/18/17 10:12 Dose: 0.1 mg Clopidogrel Bisulfate (Plavix) 75 mg PO DAILY [facility] Last Admin: 02/18/17 10:11 Dose: 75 mg Enalapril Maleate (Vasotec) 20 mg PO DAILY [facility] Last Admin: 02/18/17 10:12 Dose: 20 mg Heparin Sodium (Porcine) (Heparin) 5,000 units SC Q12 [facility] Last Admin: 02/18/17 10:10 Dose: 5,000 units Hydrochlorothiazide (Hydrodiuril) 25 mg PO DAILY [facility] Last Admin: 02/18/17 10:11 Dose: 25 mg Rosuvastatin Calcium (Crestor) 40 mg PO HS [facility] Last Admin: 02/17/17 21:15 Dose: 40 mg - Labs Labs: 02/18/17 04:33 02/18/17 04:33 PT 12.2 SECONDS (9.7-12.2) 02/17/17 11:43 INR 1.1 02/17/17 11:43 APTT 29 SECONDS (21-34) 02/17/17 11:43 Attending/Attestation - Attestation I have personally seen and examined this patient.: Yes I have fully participated in the care of the patient.: Yes I have reviewed all pertinent clinical information, including history, physical exam and plan: Yes Notes (Text): Medical attending: Patient was seen and examined by me, agree with the above note by medical administrative specialist. When we saw the patient she explains that she did okay overnight. She was not having any chest pain and she was not having shortness of breath. Per review of telemetry heart rate ranged in the mid 50 to low 60 range. It appeared to be NSR. This is better than when she came in in the mid 40s. As reported above in the previous HPI we held the patient's beta tomy. Her blood pressure is stable at this time with the other medications She was evaluated by cardiology and the plan is for cardiac cath sometime tomorrow Thank you very much, Anand Marrero
--- NOTE | 2017-02-18 09:16 | RAD ---
HISTORY: syncope COMPARISON: 07/09/2015 FINDINGS: LUNGS: Mild venous congestion. Right hilar prominence. Minimal patchy increased markings at the left lung base. PLEURA: As above. CARDIOVASCULAR: Normal. OSSEOUS STRUCTURES: Degenerative changes in the spine with paravertebral osteophytes. VISUALIZED UPPER ABDOMEN: Normal. OTHER FINDINGS: None. IMPRESSION: Mild venous congestion. Right hilar prominence. Minimal patchy increased markings at the left lung base.
[2017-02-18] MEDS ORDERED: Pneumococcal 23-Valent Vaccine IM ONE (10:00)
--- NOTE | 2017-02-18 11:08 | CARD ---
APPROVED REPORT EKG Measurement Heart [id number] ID [id number] <Conclusion> Sinus bradycardia T wave abnormality, consider anterior ischemia Abnormal ECG
--- NOTE | 2017-02-18 11:08 | CARD ---
APPROVED REPORT EKG Measurement Heart [id number] NM [id number] <Conclusion> Sinus bradycardia Possible Left atrial enlargement T wave abnormality, consider inferior ischemia Abnormal ECG
--- NOTE | 2017-02-18 11:50 | CARD ---
APPROVED REPORT EXAM: Two-dimensional and M-mode echocardiogram with Doppler and color Doppler. Other Information Quality : GoodRhythm : INDICATION Cardiac Disease: CAD Syncope STENT IN 2015 RISK FACTORS Hypertension Hyperlipidemia M-Mode DIMENSIONS RVDd2.15 (2.1-3.2cm)Left Atrium (MM)3.64 (2.5-4.0cm) IVSd0.97 (0.7-1.1cm)Aortic Root2.81 (2.2-3.7cm) LVDd5.69 (4.0-5.6cm)Aortic Cusp Exc.2.01 (1.5-2.0cm) PWd0.83 (0.7-1.1cm)FS (%) 45 % LVDs3.16 (2.0-3.8cm)LVEF (%)75 (>50%) Mitral Valve MV E Vil[place]uje56.9cm/sMV A Rcpaweyq129.9cm/sE/A ratio0.9 TDI E/Lateral E'0.0E/Medial E'0.0 Tricuspid Valve TR Peak [id number]/sTR Peak [id number] LEFT VENTRICLE The Left Ventricle is borderline dilated. There is normal left ventricular wall thickness. The Ejection Fraction is >70%. There is normal LV segmental wall motion. The left atrial pressure is mildly elevated. moderately increased la volume index. Transmitral Doppler flow pattern is Grade II-pseudonormal filling dynamics. RIGHT VENTRICLE The right ventricle is normal size. The right ventricular systolic function is normal. ATRIA The left atrium size is normal. The right atrium size is normal. suspicious for pfo. AORTIC VALVE The aortic valve is normal in structure. No aortic regurgitation is present. MITRAL VALVE The mitral valve leaflets are mildly calcified but opens well. Mitral regurgitation is mild to moderate. TRICUSPID VALVE The tricuspid valve is normal in structure. There is mild to moderate tricuspid regurgitation. Right ventricular systolic pressure is estimated at 39 mmHg. There is mild pulmonary hypertension. PULMONIC VALVE The pulmonary valve is normal in structure. There is no pulmonic valvular regurgitation. GREAT VESSELS The aortic root is normal in size. The IVC is normal in size and collapses >50% with inspiration. PERICARDIAL EFFUSION trivial posterior pericardial effusion is noted. <Conclusion> The Left Ventricle is borderline dilated. The Ejection Fraction is >70%. The left atrial pressure is mildly elevated. moderately increased la volume index. Transmitral Doppler flow pattern is Grade II-pseudonormal filling dynamics. suspicious for pfo. Mitral regurgitation is mild to moderate. There is mild to moderate tricuspid regurgitation. Right ventricular systolic pressure is estimated at 39 mmHg. There is mild pulmonary hypertension.
--- NOTE | 2017-02-18 19:28 | VASCLAB ---
PROCEDURE: HISTORY: syncope COMPARISON: None available. TECHNIQUE: Grayscale and duplex Doppler evaluation of the cervical carotid and vertebral arteries were performed. The common carotid, carotid bifurcations and cervical Internal Carotid Artery (ICA) and proximal External Carotid Artery (ECA) were evaluated. The vertebral arteries were evaluated for gross patency and flow direction. Report prepared by Jaspreet Ibarra, BS, RVT FINDINGS: RIGHT CAROTID ARTERIES: 1. Common Carotid Artery: No significant focal plaque formation of the right common carotid artery. Maximum Peak Systolic velocity: 125 cm/sec: End-diastolic velocity 21 cm/sec. 2. Carotid Bifurcation: Mild homogeneous plaque formation. Maximum Peak Systolic velocity: 107 cm/sec: End-diastolic velocity 21 cm/sec. 3. Internal Carotid Artery: Mild homogeneous plaque in the proximal segment. 3.1. Proximal Segment: Peak systolic velocity 138 cm/sec: End-diastolic velocity 32 cm/sec - % stenosis 0-15% 3.2. Middle Segment: Peak systolic velocity 121 cm/sec: End-diastolic velocity 38 cm/sec - % stenosis 0-15% 3.3. Distal Segment: Peak systolic velocity 126 cm/sec: End-diastolic velocity 38 cm/sec - % stenosis 0-15% 4. External Carotid Artery: Irregular homogeneous plaque formation. Peak systolic velocity 116 cm/sec 5. ICA/CCA Ratio: 1.1 LEFT CAROTID ARTERIES: 1. Common Carotid Artery: No significant focal plaque formation of the left common carotid artery. Diffuse intimal hyperplasia. Maximum Peak Systolic velocity: 159 cm/sec: End-diastolic velocity 26 cm/sec. 2. Carotid Bifurcation: Homogeneous plaque formation. Maximum Peak Systolic velocity: 127 cm/sec: End-diastolic velocity 20 cm/sec. 3. Internal Carotid Artery: Minimal plaque formation of the left proximal ICA which does not result in hemodynamically significant stenosis. Plaque description: Homogeneous 3.1. Proximal Segment: Peak systolic velocity 123 cm/sec: End-diastolic velocity 34 cm/sec - % stenosis 0-15% 3.2. Middle Segment: Peak systolic velocity 107 cm/sec: End-diastolic velocity 33 cm/sec - % stenosis 0-15% 3.3. Distal Segment: Peak systolic velocity 104 cm/sec: End-diastolic velocity 38 cm/sec - % stenosis 0-15% 4. External Carotid Artery: No significant focal plaque formation. Peak systolic velocity 149 cm/sec 5. ICA/CCA Ratio: 0.8 VERTEBRAL ARTERIES: 1. Right Vertebral Artery: The right vertebral artery flow direction is antegrade. 2. Left Vertebral Artery: The left vertebral artery flow direction is antegrade. OTHER FINDINGS: 1. Right Brachial Blood pressure: 122 mmHg. 2. Left Brachial Blood pressure: 120 mmHg. 3. Heterogeneous thyroid gland. IMPRESSION: RIGHT: Duplex scan does not suggest hemodynamically significant stenosis of the right extracranial carotid arteries. LEFT: Duplex scan does not suggest hemodynamically significant stenosis of the left extracranial carotid arteries. Heterogeneous thyroid gland. Dedicated ultrasound recommended.
--- NOTE | 2017-02-19 07:06 | CP.PCM.PN ---
<Aggie Sena - Last Filed: 02/19/17 13:17> Subjective - Date & Time of Evaluation Date of Evaluation: 02/19/17 Time of Evaluation: 07:02 - Subjective Subjective: Patient seen and examined at bedside. No acute events overnight per nursing. Patient for cardiac catheterization today with Dr. Poon. Patient states she is hungry; however, she is currently NPO. She continues to have pain to left hip where she fell. Patient denies chest pain, dizziness, palpitations, shortness of breath, abdominal pain, nausea, vomiting, diarrhea, constipation and difficulty urinating. Patient states she is not having difficulty with ambulation. Objective - Vital Signs/Intake and Output Vital Signs (last 24 hours): Temp Pulse Resp BP Pulse Ox 98.2 F 63 20 121/75 100 02/18/17 23:30 02/19/17 05:09 02/18/17 23:30 02/18/17 23:30 02/18/17 23:30 - Medications Medications: Current Medications Aspirin (Ecotrin) 81 mg PO DAILY [facility] Last Admin: 02/18/17 10:11 Dose: 81 mg Clonidine HCl (Catapres) 0.1 mg PO DAILY [facility] Last Admin: 02/18/17 10:12 Dose: 0.1 mg Clopidogrel Bisulfate (Plavix) 75 mg PO DAILY [facility] Last Admin: 02/18/17 10:11 Dose: 75 mg Enalapril Maleate (Vasotec) 20 mg PO DAILY [facility] Last Admin: 02/18/17 10:12 Dose: 20 mg Heparin Sodium (Porcine) (Heparin) 5,000 units SC Q12 [facility] Last Admin: 02/18/17 22:49 Dose: 5,000 units Hydrochlorothiazide (Hydrodiuril) 25 mg PO DAILY [facility] Last Admin: 02/18/17 10:11 Dose: 25 mg Rosuvastatin Calcium (Crestor) 40 mg PO HS [facility] Last Admin: 02/18/17 22:42 Dose: 40 mg - Labs Labs: 02/18/17 04:33 02/18/17 04:33 PT 12.2 SECONDS (9.7-12.2) 02/17/17 11:43 INR 1.1 02/17/17 11:43 APTT 29 SECONDS (21-34) 02/17/17 11:43 - Constitutional Appears: Non-toxic, No Acute Distress - Head Exam Head Exam: ATRAUMATIC, NORMAL INSPECTION, NORMOCEPHALIC - Eye Exam Eye Exam: EOMI, Normal appearance, PERRL - ENT Exam ENT Exam: Mucous Membranes Moist - Neck Exam Neck Exam: Full ROM, Normal Inspection - Respiratory Exam Respiratory Exam: Clear to Ausculation Bilateral, NORMAL BREATHING PATTERN. absent: Rales, Rhonchi, Wheezes - Cardiovascular Exam Cardiovascular Exam: +S1, +S2. absent: Tachycardia, Murmur - GI/Abdominal Exam GI & Abdominal Exam: Soft, Normal Bowel Sounds. absent: Tenderness - Extremities Exam Extremities Exam: Normal Capillary Refill, Normal Inspection. absent: Pedal Edema, Tenderness - Neurological Exam Neurological Exam: Alert, Awake, Oriented x3 - Psychiatric Exam Psychiatric exam: Normal Affect, Normal Mood - Skin Skin Exam: Intact, Normal Color, Warm Assessment and Plan - Assessment and Plan (Free Text) Assessment: Syncope r/o Cardioneurogenic cause For cardiac catheterization today with Dr. Poon. Patient has history of Coronary artery disease with stent placed to LAD Head CT: No acute intracranial pathology identified. Soft tissue scalp irregularity along the vertex compatible with laceration. EKG: sinus bradycardia at rate of 48 bpm Troponin I <0.0120 [facility] panel x3 negative EKG: sinus bradycardia at rate of 50 CK-MB 0.32 NT-pro-B Natriuret Pep 87.1 Hold Metoprolol due to sinus bradycardia Orthostatics are negative CXR: Mild venous congestion. Right hilar prominence. Minimal patchy increased markings at left lung base. Echocardiogram: Left Ventricle is borderline dilated. Ejection fraction is >70% . Left atrial pressure is mildly elevated. Moderately increased left atrial volume index. Transmitral doppler flow pattern is grade II-pseudonormal filling dynamics suspicious for pfo. Mitral regurgitation is mild to moderate. There is mild to moderate tricuspid regurgitation. Right ventricular systolic pressure is estimated at 39 mmHg. There is mild pulmonary hypertension. Carotid Dopplers - negative On Site Manager, Dr. Poon, consulted. Help appreciated. CAD s/p stent placement Plavix 75 mg po daily ASA 81 mg po daily HOLD Lopressor due to sinus bradycardia Continue Atorvastatin 40 mg po HS and Enalapril 20 mg po daily Hypertension Normotensive Continue home medication: Hydrochlorothiazide 25 mg po daily and Clonidine 0.1 mg po daily Monitor Hypokalemia Potassium 3.0 Potassium Chloride 20 meq IVPB given x2 as patient is NPO f/u potassium L Hip Ecchymosis X-ray of left hip: No fracture or dislocation. Osteoarthrosis. Prophylaxis Heparin 5000 U SC Q12H [facility] <Anand Marrero H - Last Filed: 02/19/17 13:50> Objective - Vital Signs/Intake and Output Vital Signs (last 24 hours): Temp Pulse Resp BP Pulse Ox 98.0 F 56 L 20 123/73 99 02/19/17 07:42 02/19/17 07:42 02/19/17 07:42 02/19/17 07:42 02/19/17 07:42 - Medications Medications: Current Medications Aspirin (Ecotrin) 81 mg PO DAILY [facility] Last Admin: 02/18/17 10:11 Dose: 81 mg Clonidine HCl (Catapres) 0.1 mg PO DAILY [facility] Last Admin: 02/18/17 10:12 Dose: 0.1 mg Clopidogrel Bisulfate (Plavix) 75 mg PO DAILY [facility] Last Admin: 02/18/17 10:11 Dose: 75 mg Enalapril Maleate (Vasotec) 20 mg PO DAILY [facility] Last Admin: 02/18/17 10:12 Dose: 20 mg Heparin Sodium (Porcine) (Heparin) 5,000 units SC Q12 [facility] Last Admin: 02/18/17 22:49 Dose: 5,000 units Hydrochlorothiazide (Hydrodiuril) 25 mg PO DAILY [facility] Last Admin: 02/18/17 10:11 Dose: 25 mg Potassium Chloride (Potassium Chloride 20 Meq/100 Ml) 20 meq in 100 mls @ 50 mls/hr IVPB Q2H [facility] Stop: 02/19/17 14:59 Last Admin: 02/19/17 11:00 Dose: 50 mls/hr Rosuvastatin Calcium (Crestor) 40 mg PO HS [facility] Last Admin: 02/18/17 22:42 Dose: 40 mg - Labs Labs: 02/19/17 07:42 02/19/17 07:42 PT 11.8 SECONDS (9.7-12.2) 02/19/17 07:42 INR 1.1 02/19/17 07:42 APTT 36 SECONDS (21-34) H D 02/19/17 07:42 Attending/Attestation - Attestation I have personally seen and examined this patient.: Yes I have fully participated in the care of the patient.: Yes I have reviewed all pertinent clinical information, including history, physical exam and plan: Yes Notes (Text): Medical attending: Agree with the above note by medical laboratory scientist. The patient's echo returned showing ejection fraction of 65-70% Today the patient is getting a cardiac cath. I did speak with the patient's primary care physician Dr. Pavel Powell gave him an update. Family present at bedside as well The patients cardiac enzymes have been negative, her heart rate is still on the slower side the telemetry shows that she is mostly in the high 50s to mid 60 range it is NSR, were still holding off on the beta tomy this time Thank you very much, Anand Marrero
[2017-02-19 07:58] LABS: BASO # 0.1 K/uL (0.0-0.2); BASO % 0.8 % (0.0-2.0); EOS # 0.1 K/uL (0.0-0.7); EOS % 1.1 % (0.0-4.0); HEMATOCRIT 38.6 % (34.0-47.0); LYMPH # 2.6 K/uL (1.0-4.3); LYMPH % 33.6 % (20.0-40.0); MEAN CORPUSCULAR HEMOGLOBIN 27.1 pg (27.0-31.0); MEAN CORPUSCULAR HGB CONC 32.6 g/dL (33.0-37.0); MEAN PLATELET VOLUME 11.8 fL (7.2-11.7); MONO # 0.5 K/uL (0.0-0.8); RED CELL DISTRIBUTION WIDTH 15.1 % (11.5-14.5); WHITE BLOOD COUNT 7.6 K/uL (4.8-10.8)
[2017-02-19 07:59] LABS: CHLORIDE 101 mmol/L (98-107)
[2017-02-19 08:00] LABS: SODIUM 141 mmol/L (132-148)
[2017-02-19 08:02] LABS: ALB/GLOB RATIO 1.1 (1.0-2.1); AST/SGOT 24 U/L (14-36); BILIRUBIN,TOTAL 0.7 mg/dL (0.2-1.3); BLOOD UREA NITROGEN 19 mg/dL (7-17); CARBON DIOXIDE 29 mmol/L (22-30); GFR AFRICAN-AMERICAN > 60
[2017-02-19 08:03] LABS: ALKALINE PHOSPHATASE 90 U/L (38-126); ALT/SGPT 14 U/L (9-52); CALCIUM 9.3 mg/dl (8.6-10.4); GLUCOSE,RANDOM 104 mg/dL (65-105); MAGNESIUM 2.1 mg/dL (1.6-2.3)
[2017-02-19 08:04] LABS: INR 1.1
--- NOTE | 2017-02-19 08:58 | RAD ---
PROCEDURE: HISTORY: fall COMPARISON: None TECHNIQUE: AP view of the pelvis and applicable frog leg views obtained. FINDINGS: Bilateral superolateral joint space narrowing spurring -left superior acetabulum greater than right L4-5 disc space narrowing with right lateral lateral marginal osteophytes. No fracture dislocation. Sacroiliac and pubic symphyseal joints unremarkable. Incidental left hemipelvic phleboliths IMPRESSION: No fracture or dislocation. Osteoarthrosis
[2017-02-19] MEDS ORDERED: Midazolam 2 MG/2 ML VIAL ONE ×2 (13:13→13:26)
--- NOTE | 2017-02-19 13:42 | CP.PCM.PN ---
Subjective - Date & Time of Evaluation Date of Evaluation: 02/19/17 Time of Evaluation: 13:40 - Subjective Subjective: cardiac catheterization performed. patent stent in the LAD. normal left ventricular function. stable for discharge at 5 pm Objective - Vital Signs/Intake and Output Vital Signs (last 24 hours): Temp Pulse Resp BP Pulse Ox 98.0 F 56 L 20 123/73 99 02/19/17 07:42 02/19/17 07:42 02/19/17 07:42 02/19/17 07:42 02/19/17 07:42 - Medications Medications: Current Medications Aspirin (Ecotrin) 81 mg PO DAILY [facility] Last Admin: 02/18/17 10:11 Dose: 81 mg Clonidine HCl (Catapres) 0.1 mg PO DAILY [facility] Last Admin: 02/18/17 10:12 Dose: 0.1 mg Clopidogrel Bisulfate (Plavix) 75 mg PO DAILY [facility] Last Admin: 02/18/17 10:11 Dose: 75 mg Enalapril Maleate (Vasotec) 20 mg PO DAILY [facility] Last Admin: 02/18/17 10:12 Dose: 20 mg Heparin Sodium (Porcine) (Heparin) 5,000 units SC Q12 [facility] Last Admin: 02/18/17 22:49 Dose: 5,000 units Hydrochlorothiazide (Hydrodiuril) 25 mg PO DAILY [facility] Last Admin: 02/18/17 10:11 Dose: 25 mg Potassium Chloride (Potassium Chloride 20 Meq/100 Ml) 20 meq in 100 mls @ 50 mls/hr IVPB Q2H [facility] Stop: 02/19/17 14:59 Last Admin: 02/19/17 11:00 Dose: 50 mls/hr Rosuvastatin Calcium (Crestor) 40 mg PO HS [facility] Last Admin: 02/18/17 22:42 Dose: 40 mg - Labs Labs: 02/19/17 07:42 02/19/17 07:42 PT 11.8 SECONDS (9.7-12.2) 02/19/17 07:42 INR 1.1 02/19/17 07:42 APTT 36 SECONDS (21-34) H D 02/19/17 07:42
[2017-02-19] MEDS ORDERED: Sodium Chloride 0.9% 500 ML IV SCH (14:05)
--- NOTE | 2017-02-19 16:44 | CARDCATH ---
PROCEDURE DATE: 02/19/2017 PROCEDURE PERFORMED: Left heart catheterization, coronary angiography, left ventriculography. INDICATIONS: Dyspnea on exertion, coronary artery disease. COMPLICATIONS: None. HISTORY: As follows: The patient is a 61-year-old female with a past medical history of hypertensio n, coronary artery disease, status post stent to the left anterior descending artery, who has dyspnea on exertion. Symptoms are progressive. The patient had a syncopal event which required hospitaliza tion. She is referred for further evaluation. DESCRIPTION OF PROCEDURE: As follows: Informed consent was obtained and coronary angiography and le ft ventriculography were performed. Right groin was anesthetized and a 6-Italian sheath was inserted into the right common femoral artery. FINDINGS: LEFT MAIN: Normal. LEFT ANTERIOR DESCENDING ARTERY: There is a 20% stenosis of the mid vessel. The mid portion of the mid vessel has been previously stented. The stent is patent, although there is a 20% stenosis of the proximal portion of the stent. LEFT CIRCUMFLEX ARTERY: With mild luminal irregularities. RIGHT CORONARY ARTERY: Arises from the right sinus of Valsalva. This is a right dominant circulatio n. The right coronary artery is normal. CONCLUSIONS: Patent stent in the left anterior descending artery, normal left ventricular function. PLAN: Medical therapy. Lili Poon MD cc: [id number] TT: 02/19/2017 16:43:29 sn
[2017-02-20 07:27] LABS: BASO # 0.1 K/uL (0.0-0.2); BASO % 0.7 % (0.0-2.0); EOS # 0.1 K/uL (0.0-0.7); EOS % 1.3 % (0.0-4.0); HEMATOCRIT 33.9 % (34.0-47.0); LYMPH # 2.2 K/uL (1.0-4.3); LYMPH % 27.7 % (20.0-40.0); MEAN CELL VOLUME 83.1 fL (81.0-99.0); MEAN CORPUSCULAR HEMOGLOBIN 26.8 pg (27.0-31.0); MEAN CORPUSCULAR HGB CONC 32.2 g/dL (33.0-37.0); MEAN PLATELET VOLUME 11.4 fL (7.2-11.7); MONO # 0.6 K/uL (0.0-0.8); MONO % 8.1 % (0.0-10.0); RED CELL DISTRIBUTION WIDTH 15.3 % (11.5-14.5); WHITE BLOOD COUNT 7.8 K/uL (4.8-10.8)
[2017-02-20 07:47] VITALS: PULSE 58; RESP 17; TEMP 98; O2SAT 98
[2017-02-20 07:47] LABS: CHLORIDE 103 mmol/L (98-107); POTASSIUM 3.1 mmol/L (3.6-5.2); SODIUM 140 mmol/L (132-148)
[2017-02-20 07:49] LABS: ALKALINE PHOSPHATASE 67 U/L (38-126); AST/SGOT 23 U/L (14-36); BILIRUBIN,TOTAL 0.7 mg/dL (0.2-1.3); CARBON DIOXIDE 32 mmol/L (22-30); GFR AFRICAN-AMERICAN > 60; TOTAL PROTEIN 6.4 g/dL (6.3-8.3)
[2017-02-20 07:50] LABS: ALT/SGPT 16 U/L (9-52); BLOOD UREA NITROGEN 18 mg/dL (7-17); GLUCOSE,RANDOM 97 mg/dL (65-105); MAGNESIUM 1.9 mg/dL (1.6-2.3)
[2017-02-20] MEDS ORDERED: Potassium Chloride 20 mEq ER Tab PO STA (09:05)
[2017-02-20 09:25] VITALS: BP 126/71
--- NOTE | 2017-02-20 22:55 | CP.PCM.DIS ---
<Aggie Sena - Last Filed: 02/21/17 13:52> Provider - Provider Date of Admission: 02/17/17 14:10 Attending physician: Anand Marrero DO Primary care physician: PMD: Dr. Saurav Powell Consults: Facilities Operator, Dr. Poon Time Spent in preparation of Discharge (in minutes): 31 Diagnosis - Discharge Diagnosis (1) Syncope Status: Acute (2) CAD (coronary artery disease) Status: Chronic (3) HTN (hypertension) Status: Chronic (4) Traumatic ecchymosis of left hip Status: Acute Hospital Course - Lab Results Lab Results: Most Recent Lab Values WBC 7.8 K/uL (4.8-10.8) 02/20/17 07:10 RBC 4.08 Mil/uL (3.80-5.20) 02/20/17 07:10 Hgb 10.9 g/dL (11.0-16.0) L 02/20/17 07:10 Hct 33.9 % (34.0-47.0) L 02/20/17 07:10 MCV 83.1 fL (81.0-99.0) 02/20/17 07:10 MCH 26.8 pg (27.0-31.0) L 02/20/17 07:10 MCHC 32.2 g/dL (33.0-37.0) L 02/20/17 07:10 RDW 15.3 % (11.5-14.5) H 02/20/17 07:10 Plt Count 113 K/uL (130-400) L 02/20/17 07:10 MPV 11.4 fL (7.2-11.7) 02/20/17 07:10 Neut % (Auto) 62.2 % (50.0-75.0) 02/20/17 07:10 Lymph % (Auto) 27.7 % (20.0-40.0) 02/20/17 07:10 [place] % (Auto) 8.1 % (0.0-10.0) 02/20/17 07:10 Eos % (Auto) 1.3 % (0.0-4.0) 02/20/17 07:10 Baso % (Auto) 0.7 % (0.0-2.0) 02/20/17 07:10 Neut # 4.8 K/uL (1.8-7.0) 02/20/17 07:10 Lymph # 2.2 K/uL (1.0-4.3) 02/20/17 07:10 [place] # 0.6 K/uL (0.0-0.8) 02/20/17 07:10 Eos # 0.1 K/uL (0.0-0.7) 02/20/17 07:10 Baso # 0.1 K/uL (0.0-0.2) 02/20/17 07:10 PT 11.8 SECONDS (9.7-12.2) 02/19/17 07:42 INR 1.1 02/19/17 07:42 APTT 36 SECONDS (21-34) H D 02/19/17 07:42 Sodium 140 mmol/L (132-148) 02/20/17 07:10 Potassium 3.1 mmol/L (3.6-5.2) L 02/20/17 07:10 Chloride 103 mmol/L (98-107) 02/20/17 07:10 Carbon Dioxide 32 mmol/L (22-30) H 02/20/17 07:10 Anion Gap 8 (10-20) L 02/20/17 07:10 BUN 18 mg/dL (7-17) H 02/20/17 07:10 Creatinine 0.8 MG/DL (0.7-1.2) 02/20/17 07:10 Est GFR ( Amer) > 60 02/20/17 07:10 Est GFR (Non-Af Amer) > 60 02/20/17 07:10 Random Glucose 97 mg/dL (65-105) 02/20/17 07:10 Hemoglobin A1c 6.4 % (4.2-6.5) 02/18/17 04:33 Calcium 8.0 mg/dl (8.6-10.4) L 02/20/17 07:10 Phosphorus 3.0 mg/dL (2.5-4.5) 02/17/17 11:43 Magnesium 1.9 mg/dL (1.6-2.3) 02/20/17 07:10 Total Bilirubin 0.7 mg/dL (0.2-1.3) 02/20/17 07:10 AST 23 U/L (14-36) 02/20/17 07:10 ALT 16 U/L (9-52) 02/20/17 07:10 Alkaline Phosphatase 67 U/L (38-126) 02/20/17 07:10 Total Creatine Kinase 44 U/L (30-135) 02/18/17 04:33 CK-MB (Mass) < 0.22 ng/mL (0.0-3.38) 02/18/17 04:33 Troponin I < 0.0120 ng/mL (0.00-0.120) 02/17/17 11:43 Troponin I, Quant < 0.0120 ng/mL (0.00-0.120) 02/18/17 04:33 NT-Pro-B Natriuret Pep 87.1 pg/mL (0-900) 02/17/17 11:43 Total Protein 6.4 g/dL (6.3-8.3) 02/20/17 07:10 Albumin 3.2 g/dL (3.5-5.0) L D 02/20/17 07:10 Globulin 3.3 gm/dL (2.2-3.9) 02/20/17 07:10 Albumin/Globulin Ratio 1.0 (1.0-2.1) 02/20/17 07:10 Triglycerides 94 mg/dL (0-149) 02/17/17 11:43 Cholesterol 156 mg/dL (0-199) 02/17/17 11:43 LDL Cholesterol Direct 91 mg/dL (0-129) 02/17/17 11:43 HDL Cholesterol 35 mg/dL (30-70) 02/17/17 11:43 TSH 3rd Generation 0.67 mIU/L (0.46-4.68) 02/17/17 11:43 Urine Color Yellow (YELLOW) 02/17/17 11:48 Urine Clarity Hazy (Clear) 02/17/17 11:48 Urine pH 5.0 (5.0-8.0) 02/17/17 11:48 Ur Specific [place] 1.013 (1.003-1.030) 02/17/17 11:48 Urine Protein Negative mg/dL (NEGATIVE) 02/17/17 11:48 Urine Glucose (UA) Normal mg/dL (Normal) 02/17/17 11:48 Urine Ketones Negative mg/dL (NEGATIVE) 02/17/17 11:48 Urine Blood Negative (NEGATIVE) 02/17/17 11:48 Urine Nitrate Negative (NEGATIVE) 02/17/17 11:48 Urine Bilirubin Negative (NEGATIVE) 02/17/17 11:48 Urine Urobilinogen Normal mg/dL (0.2-1.0) 02/17/17 11:48 Ur Leukocyte Esterase Neg Otilio/uL (Negative) 02/17/17 11:48 Urine WBC (Auto) 5 /hpf (0-5) 02/17/17 11:48 Urine RBC (Auto) 4 /hpf (0-3) H 02/17/17 11:48 Ur Squamous Epith Cells 9 /hpf (0-5) H 02/17/17 11:48 Urine Bacteria Few (<OCC) H 02/17/17 11:48 Hyaline Casts 11-20 /lpf (0-2) H 02/17/17 11:48 - Hospital Course Hospital Course: On initial presentation: CC: "vision got blurry and dizzy" HPI: Patient is a 61 year old female who presents to the emergency department for episode of syncope which occurred early this morning. Patient arrived to her primary care physician's office for her 8:00 AM appointment to have her medications refilled and was in the waiting room when the episode occurred and she was sent to the emergency department by her primary care physician. She reports she stood up from the chair and her vision became blurry and she felt dizzy. Patient denies falling as she leaned up against a wall to support herself. Patient was unclear with details when questioned if she lost consciousness during the event. However, upon re-examination of the patient, she states she hit her head and fell to her side and was supported by another patient. Patient admits to taking her medications prior to her appointment which include Atorvastatin 40 mg po HS, Clonidin 0.1 mg po qd, Plavix 75 mg po qd, Enalapril 20 mg po qd, Hydrochlorothiazide 25 mg po qd, and Lopressor 50 mg po BID. She states she takes all her medicines at the same time every day. Patient denies other recent syncopal episodes. She reports the only other episode of syncope she experienced was prior to her cardiac catheterization in 2014 which revealed an "80% blockage" of her heart. Patient states the syncopal events were different. She denies shortness of breath, chest pain, palpitations , difficulty with ambulation or unstable gait, abdominal pain, fever, chills, nausea, vomiting, diarrhea, hematochezia, melanic stools, constipation, dysuria , increased urinary frequency, and lower extremity swelling. Patient denies a history of TIA/CVA. PMD: Dr. Mark Anthony Powell PMH: Hypertension, CAD with stent placement to LAD (2014), HLD Medications: as above Allergies: NKDA Family History: Father- CVA Surgical History: cardiac stent placement to LAD, incision and drainage of right leg abscess. Social: Never smoker. Denies alcohol and illicit drug use. During hospital course: Syncope r/o Cardioneurogenic cause s/p cardiac catheterization with Dr. Poon: patient stent in LAD, normal left ventricular function. Patient has history of Coronary artery disease with stent placed to LAD NYASIA panel x3 negative Repeat EKG: sinus bradycardia at rate of 50 CK-MB 0.32 NT-pro-B Natriuret Pep 87.1 Metoprolol was held due to sinus bradycardia Orthostatic vitals were negative CXR: Mild venous congestion. Right hilar prominence. Minimal patchy increased markings at left lung base. Echocardiogram: Left Ventricle is borderline dilated. Ejection fraction is >70% . Left atrial pressure is mildly elevated. Moderately increased left atrial volume index. Transmitral doppler flow pattern is grade II-pseudonormal filling dynamics suspicious for pfo. Mitral regurgitation is mild to moderate. There is mild to moderate tricuspid regurgitation. Right ventricular systolic pressure is estimated at 39 mmHg. There is mild pulmonary hypertension. Carotid Dopplers - negative Head CT: No acute intracranial pathology identified. Soft tissue scalp irregularity along the vertex compatible with laceration. EKG: sinus bradycardia at rate of 48 bpm Facilities Operator, Dr. Poon, consulted. Help appreciated. CAD s/p LAD stent placement Plavix 75 mg po daily ASA 81 mg po daily HOLD Lopressor due to sinus bradycardia Continue Atorvastatin 40 mg po HS and Enalapril 20 mg po daily Hypertension Normotensive Continue home medication: Hydrochlorothiazide 25 mg po daily and Clonidine 0.1 mg po daily Pressure was monitored Hypokalemia Resolved Potassium was repleted as needed L Hip Ecchymosis X-ray of left hip: No fracture or dislocation. Osteoarthrosis. Cold compresses to area Prophylaxis Heparin 5000 U SC Q12H SCDs Please note this is a summary of hospital course. For full details, please see patient chart. Discharge Instructions: Patient medically stable for discharge home per Dr. Marrero. Patient instructed to continue taking all home medications with the exception of Lopressor 50 mg by mouth twice daily. Patient discharged on lower dose of Lopressor 12.5 mg tab by mouth twice daily. Patient instructed she will need to follow-up with her primary care physician within one week of discharge from the hospital. Patient instructed to also follow-up with electrician machine shop, Dr. Poon, within one week of discharge from the hospital. Patient instructed to return to the emergency department if symptoms recur. Patient given detailed instructions at bedside. Patient understands and agrees. - Date & Time of H&P Date of H&P: 02/17/17 Time of H&P: 14:57 Discharge Exam - Head Exam Head Exam: ATRAUMATIC, NORMAL INSPECTION, NORMOCEPHALIC - Eye Exam Eye Exam: EOMI, Normal appearance, PERRL Pupil Exam: PERRL - ENT Exam ENT Exam: Mucous Membranes Moist - Neck Exam Neck exam: Full Rom, Normal Inspection - Respiratory Exam Respiratory Exam: Clear to PA & Lateral, NORMAL BREATHING PATTERN, UNREMARKABLE. absent: Rales, Rhonchi, Wheezes - Cardiovascular Exam Cardiovascular Exam: Bradycardia, +S1, +S2. absent: Tachycardia - GI/Abdominal Exam GI & Abdominal Exam: Normal Bowel Sounds, Unremarkable - Extremities Exam Extremities exam: full ROM, pedal pulses present Additional comments: clean and intact dressing to right inguinal cath site - Back Exam Back exam: absent: tenderness - Neurological Exam Neurological exam: Alert, CN II-XII Intact, Oriented x3 - Psychiatric Exam Psychiatric exam: Normal Affect, Normal Mood - Skin Skin Exam: Intact Additional comments: ecchymosis to left hip Discharge Plan - Discharge Medications Prescriptions: Aspirin [Ecotrin] 81 mg PO DAILY #30 Atorvastatin Calcium 40 mg PO HS #30 cloNIDine [Catapres (RENAL)] 0.1 mg PO DAILY #30 Clopidogrel [Plavix] 75 mg PO DAILY #30 Enalapril Maleate [Vasotec] 20 mg PO DAILY #30 tab hydroCHLOROthiazide [Hydrodiuril] 25 mg PO DAILY #30 tab Metoprolol Tartrate [Lopressor] 0 mg PO BID #60 tab - Follow Up Plan Condition: STABLE Disposition: HOME/ ROUTINE Instructions: Metoprolol (By mouth), Enalapril (By mouth), Clonidine (By mouth) , Hydrochlorothiazide (By mouth), Aspirin (By mouth), Atorvastatin (By mouth), Clopidogrel (By mouth), Coronary Artery Disease (DC), Left Heart Catheterization (DC), Heart Healthy Diet (DC), Syncope (DC) Additional Instructions: Patient medically stable for discharge home per Dr. Marrero. Patient instructed to continue taking all home medications with the exception of Lopressor 50 mg by mouth twice daily. Patient discharged on lower dose of Lopressor 12.5 mg tab by mouth twice daily. Patient instructed she will need to follow-up with her primary care physician within one week of discharge from the hospital. Patient instructed to also follow-up with electrician machine shop, Dr. Poon, within one week of discharge from the hospital. Patient instructed to return to the emergency department if symptoms recur. Patient given detailed instructions at bedside. Patient understands and agrees. Referrals: Saurav Powell MD [Staff Provider] - Lili Poon MD [Staff Provider] - <Anand Marrero - Last Filed: 02/21/17 17:17> Provider - Provider Date of Admission: 02/17/17 14:10 Attending physician: Anand Marrero, Hospital Course - Lab Results Lab Results: Most Recent Lab Values WBC 7.8 K/uL (4.8-10.8) 02/20/17 07:10 RBC 4.08 Mil/uL (3.80-5.20) 02/20/17 07:10 Hgb 10.9 g/dL (11.0-16.0) L 02/20/17 07:10 Hct 33.9 % (34.0-47.0) L 02/20/17 07:10 MCV 83.1 fL (81.0-99.0) 02/20/17 07:10 MCH 26.8 pg (27.0-31.0) L 02/20/17 07:10 MCHC 32.2 g/dL (33.0-37.0) L 02/20/17 07:10 RDW 15.3 % (11.5-14.5) H 02/20/17 07:10 Plt Count 113 K/uL (130-400) L 02/20/17 07:10 MPV 11.4 fL (7.2-11.7) 02/20/17 07:10 Neut % (Auto) 62.2 % (50.0-75.0) 02/20/17 07:10 Lymph % (Auto) 27.7 % (20.0-40.0) 02/20/17 07:10 [place] % (Auto) 8.1 % (0.0-10.0) 02/20/17 07:10 Eos % (Auto) 1.3 % (0.0-4.0) 02/20/17 07:10 Baso % (Auto) 0.7 % (0.0-2.0) 02/20/17 07:10 Neut # 4.8 K/uL (1.8-7.0) 02/20/17 07:10 Lymph # 2.2 K/uL (1.0-4.3) 02/20/17 07:10 [place] # 0.6 K/uL (0.0-0.8) 02/20/17 07:10 Eos # 0.1 K/uL (0.0-0.7) 02/20/17 07:10 Baso # 0.1 K/uL (0.0-0.2) 02/20/17 07:10 PT 11.8 SECONDS (9.7-12.2) 02/19/17 07:42 INR 1.1 02/19/17 07:42 APTT 36 SECONDS (21-34) H D 02/19/17 07:42 Sodium 140 mmol/L (132-148) 02/20/17 07:10 Potassium 3.1 mmol/L (3.6-5.2) L 02/20/17 07:10 Chloride 103 mmol/L (98-107) 02/20/17 07:10 Carbon Dioxide 32 mmol/L (22-30) H 02/20/17 07:10 Anion Gap 8 (10-20) L 02/20/17 07:10 BUN 18 mg/dL (7-17) H 02/20/17 07:10 Creatinine 0.8 MG/DL (0.7-1.2) 02/20/17 07:10 Est GFR ( Amer) > 60 02/20/17 07:10 Est GFR (Non-Af Amer) > 60 02/20/17 07:10 Random Glucose 97 mg/dL (65-105) 02/20/17 07:10 Hemoglobin A1c 6.4 % (4.2-6.5) 02/18/17 04:33 Calcium 8.0 mg/dl (8.6-10.4) L 02/20/17 07:10 Phosphorus 3.0 mg/dL (2.5-4.5) 02/17/17 11:43 Magnesium 1.9 mg/dL (1.6-2.3) 02/20/17 07:10 Total Bilirubin 0.7 mg/dL (0.2-1.3) 02/20/17 07:10 AST 23 U/L (14-36) 02/20/17 07:10 ALT 16 U/L (9-52) 02/20/17 07:10 Alkaline Phosphatase 67 U/L (38-126) 02/20/17 07:10 Total Creatine Kinase 44 U/L (30-135) 02/18/17 04:33 CK-MB (Mass) < 0.22 ng/mL (0.0-3.38) 02/18/17 04:33 Troponin I < 0.0120 ng/mL (0.00-0.120) 02/17/17 11:43 Troponin I, Quant < 0.0120 ng/mL (0.00-0.120) 02/18/17 04:33 NT-Pro-B Natriuret Pep 87.1 pg/mL (0-900) 02/17/17 11:43 Total Protein 6.4 g/dL (6.3-8.3) 02/20/17 07:10 Albumin 3.2 g/dL (3.5-5.0) L D 02/20/17 07:10 Globulin 3.3 gm/dL (2.2-3.9) 02/20/17 07:10 Albumin/Globulin Ratio 1.0 (1.0-2.1) 02/20/17 07:10 Triglycerides 94 mg/dL (0-149) 02/17/17 11:43 Cholesterol 156 mg/dL (0-199) 02/17/17 11:43 LDL Cholesterol Direct 91 mg/dL (0-129) 02/17/17 11:43 HDL Cholesterol 35 mg/dL (30-70) 02/17/17 11:43 TSH 3rd Generation 0.67 mIU/L (0.46-4.68) 02/17/17 11:43 Urine Color Yellow (YELLOW) 02/17/17 11:48 Urine Clarity Hazy (Clear) 02/17/17 11:48 Urine pH 5.0 (5.0-8.0) 02/17/17 11:48 Ur Specific [place] 1.013 (1.003-1.030) 02/17/17 11:48 Urine Protein Negative mg/dL (NEGATIVE) 02/17/17 11:48 Urine Glucose (UA) Normal mg/dL (Normal) 02/17/17 11:48 Urine Ketones Negative mg/dL (NEGATIVE) 02/17/17 11:48 Urine Blood Negative (NEGATIVE) 02/17/17 11:48 Urine Nitrate Negative (NEGATIVE) 02/17/17 11:48 Urine Bilirubin Negative (NEGATIVE) 02/17/17 11:48 Urine Urobilinogen Normal mg/dL (0.2-1.0) 02/17/17 11:48 Ur Leukocyte Esterase Neg Otilio/uL (Negative) 02/17/17 11:48 Urine WBC (Auto) 5 /hpf (0-5) 02/17/17 11:48 Urine RBC (Auto) 4 /hpf (0-3) H 02/17/17 11:48 Ur Squamous Epith Cells 9 /hpf (0-5) H 02/17/17 11:48 Urine Bacteria Few (<OCC) H 02/17/17 11:48 Hyaline Casts 11-20 /lpf (0-2) H 02/17/17 11:48 Attending/Attestation - Attestation I have personally seen and examined this patient.: Yes I have fully participated in the care of the patient.: Yes I have reviewed all pertinent clinical information, including history, physical exam and plan: Yes Notes (Text): Medical Attending: Patient was seen and examined by me. Agree with the above note by the resident. Patient completed a cardiac cath with Dr Poon. She needs to continue with following up with her PMD as well as take all of her medications - however we were careful to emphasize that the patient has to take less metoprolol than before - she came with a very low HR. She will also need to follow up with cardiology as well thank you Anand Marrero
--- NOTE | 2017-02-24 07:48 | CARD ---
APPROVED REPORT EKG Measurement Heart [id number] <Conclusion> Sinus bradycardia Nonspecific ST and T wave abnormality Abnormal ECG
== END 2017-02-20 13:52 | disposition home or self-care (01) | DRG 287 ==
LOC: C.ER 10:31 → C.9E 13:07 → OBSVTOIN 14:10 → C.6T 15:09
PROVIDERS: ADMIT Hospitalist; ATTEND Hospitalist
PROC: B2151ZZ Fluoroscopy of Left Heart using Low Osmolar Contrast (ICD-10-PCS; 2017-02-19)
PROC: B2111ZZ Fluoroscopy of Multiple Coronary Arteries using Low Osmolar Contrast (ICD-10-PCS; 2017-02-19)
PROC: 4A023N7 Measurement of Cardiac Sampling and Pressure, Left Heart, Percutaneous Approach (ICD-10-PCS; principal; 2017-02-19 11:00)
DX: R55 Syncope and collapse (principal); I27.2 Other secondary pulmonary hypertension; I10 Essential (primary) hypertension; S70.02XA Contusion of left hip, initial encounter; S01.01XA Laceration without foreign body of scalp, initial encounter; I25.119 Atherosclerotic heart disease of native coronary artery with unspecified angina pectoris; W01.0XXA Fall on same level from slipping, tripping and stumbling without subsequent striking against object, initial encounter; E87.6 Hypokalemia; Z95.5 Presence of coronary angioplasty implant and graft; Z82.3 Family history of stroke; R00.1 Bradycardia, unspecified; E78.00 Pure hypercholesterolemia, unspecified; E78.5 Hyperlipidemia, unspecified; M16.12 Unilateral primary osteoarthritis, left hip; Z79.82 Long term (current) use of aspirin; Z79.899 Other long term (current) drug therapy